=== PATIENT | female | born 1980 | race American Indian/Alaskan Native ===

== ENCOUNTER 2016-12-01 13:44 | Emergency (ER) | payer OTHER ==
[2016-12-01 13:49] VITALS: PULSE 73; RESP 16; TEMP 98; O2SAT 100
[2016-12-01] MEDS ORDERED: Sodium Chloride 0.9% 500 ML IV ONE (14:23)
--- NOTE | 2016-12-01 14:42 | ED PDOC ---
Syncope/Near Syncope/Dizzyness <MinaBernabe Mayra - Last Filed: 12/01/16 16:47> Chief Complaint (Provider): Dizziness/Lightheaded History Per: Patient History/Exam Limitations: no limitations Onset/Duration Of Symptoms: Hrs (2) Current Symptoms Are (Timing): Still Present Activity At Onset Of Symptoms: Sitting Associated Symptoms Preceding Syncopal Episode: No Predromal Symptoms (Sudden Onset) Seizure Or Post-ictal Symptoms: None Fall Associated With With Symptoms: No Additional Complaint(s): 36 year old female with medical history of anemia, HTN, OA presents to ED due to lightheadedness since 12:30 pm. 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 Patient states history of anemia due to fibroids with 2 myomectomies in the past (most recent [address] Jackson). Patient states Hgb prior to that procedure was 8.5. Patient states takes Ferous Sulfate once per day. Patient states did not take BP medication this morning since she usually takes it at night (Amlodipine 5mg). Patient states feelings of off-balanceness. Denies room spinning, nausea, vomiting, gradual onset of symptoms, headache, fever, chills, abdominal pain, nausea, vomiting, diarrhea. No chest pain, palpitations, dyspnea, neck pain, recent illness, visual changees, numbness/tingling, or weakness. PMD: Unknown <Sekou Hurtado - Last Filed: 12/01/16 19:06> Time Seen by Provider: 12/01/16 14:02 Chief Complaint (Nursing): Dizziness/Lightheaded Supervising Attending Note - Supervising Attending Note The Documented history was done by the: [employer], Attending Physician The documented physical exam was done by the: [employer], Attending Physician The documented procedures were done by the: [employer], Attending Physician - Attestation: I have personally seen and examined this patient.: Yes I have fully participated in the care of the patient.: Yes I have reviewed all pertinent clinical information: Yes <MinaRylanbalbir Nunez - Last Filed: 12/01/16 16:47> Past Medical History Vital Signs: Last Vital Signs Temp 98.0 F 12/01/16 13:46 Pulse 73 12/01/16 13:46 Resp 16 12/01/16 13:46 BP 151/90 H 12/01/16 15:01 Pulse Ox 100 12/01/16 16:27 <MackBernabe acevedo Mayra - Last Filed: 12/01/16 16:47> Reviewed: Historical Data, Nursing Documentation, Vital Signs Vital Signs: Last Vital Signs Temp 98.0 F 12/01/16 13:46 Pulse 73 12/01/16 13:46 Resp 16 12/01/16 13:46 BP 163/102 H 12/01/16 13:46 Pulse Ox 100 12/01/16 13:46 - Medical History PMH: HTN - Surgical History Surgical History: (x2) Other surgeries: myomectomy x 2 - Family History Family History: States: Diabetes, Hypertension <Sekou Hurtado - Last Filed: 12/01/16 19:06> - Home Medications Home Medications: Ambulatory Orders Medication Instructions Recorded Meclizine [Meclizine*] 25 mg PO Q6 PRN #20 tab 12/01/16 - Allergies Allergies/Adverse Reactions: Allergies Allergy/AdvReac Type Severity Reaction Status Date / Time No Known Allergies Allergy Verified 12/01/16 13:46 Review of Systems ROS Statement: Except As Marked, All Systems Reviewed And Found Negative Neurological: Positive for: Dizziness <Sekou Hurtado - Last Filed: 12/01/16 19:06> Physical Exam - Reviewed Nursing Documentation Reviewed: Yes Vital Signs Reviewed: Yes - Physical Exam Appears: Positive for: Well, Non-toxic Head Exam: Positive for: ATRAUMATIC, NORMAL INSPECTION, NORMOCEPHALIC Skin: Positive for: Normal Color, Warm, Dry Eye Exam: Positive for: Normal appearance, EOMI, PERRL ENT: Positive for: Normal ENT Inspection Neck: Positive for: Normal, Painless ROM, Supple Cardiovascular/Chest: Positive for: Regular Rate, Rhythm. Negative for: Murmur , Bradycardia, Tachycardia Respiratory: Positive for: Normal Breath Sounds Gastrointestinal/Abdominal: Positive for: Normal Exam, Bowel Sounds (present), Soft. Negative for: Tenderness Back: Positive for: Normal Inspection. Negative for: L CVA Tenderness, R CVA Tenderness Extremity: Positive for: Other (limited rom of bilateral lower extremities due to OA pain). 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 Negative for: Motor/ Sensory Deficits, Facial Droop <Sekou Hurtado - Last Filed: 12/01/16 19:06> - Laboratory Results Result Diagrams: 12/01/16 14:59 12/01/16 14:59 <Bernabe Enriquez - Last Filed: 12/01/16 16:47> - Laboratory Results Result Diagrams: 12/01/16 14:59 12/01/16 14:59 - ECG O2 Sat by Pulse Oximetry: 100 Pulse Ox Interpretation: Normal - Progress ED Course And Treament: Time: 1420 Initial Impression: 36 yo F with PMHx of Anemia, HTN, OA with lightheadness/ dizziness x 2 hrs with sudden onset. DDx includes but not limited to BPPV, anemia, dysequillibrium Plan: * CBC * BMP * URINE DIP STICK * URINE PREG * ORTHOSTATIC VITALS * MECLIZINE 25MG X 1 * NS 500ML X 1 * REEVAL Time: 1610 Patient's symptoms improve though still present. Labs reviewed, mild leukocytosis and anemia present (8.1, baseline for patient). Afebrile. Patient able to ambulate without difficulty. Dizziness provoked by head movement. No n/ v. Will give additional Meclizine 25mg at this time. Patient to be discharged home with close follow up with PCP and ENT specialist. Meclizine Rx given. ED precautions given. <Sekou Hurtado - Last Filed: 12/01/16 19:06> Disposition <MinaRylanbalbir Nunez - Last Filed: 12/01/16 16:47> - Patient ED Disposition Is Patient to be Admitted: No Counseled Patient/Family Regarding: Studies Performed, Diagnosis, Need For Followup, Rx Given - Disposition Disposition: Routine/Home Disposition Time: 16:27 <Sekou Hurtado - Last Filed: 12/01/16 19:06> - Clinical Impression Clinical Impression: Vertigo, Anemia - Disposition Referrals: Jesus Mtz MD [Staff Provider] - Condition: GOOD Additional Instructions: Take medications as prescribed. Follow up with PCP in 2-3 days. Follow up with ENT as soon as possible for further evaluation/management. Return to ED for worsening symptoms. Prescriptions: Meclizine [Meclizine*] 25 mg PO Q6 PRN #20 tab PRN Reason: Dizziness Instructions: Vertigo (ED), Anemia (ED)
[2016-12-01 15:10] VITALS: BP 151/90
[2016-12-01 15:23] LABS: BLOOD UREA NITROGEN 16 mg/dl (7-17); CALCIUM 9.5 mg/dL (8.4-10.2); CARBON DIOXIDE 21 mmol/L (22-30); CHLORIDE 105 mmol/L (98-107); GFR AFRICAN-AMERICAN > 60; GLUCOSE,RANDOM 82 mg/dL (65-105); POTASSIUM 4.3 MMOL/L (3.6-5.0); SODIUM 138 mmol/l (132-148)
[2016-12-01 15:26] LABS: BASO # 0.2 K/uL (0.0-0.2); BASO % 1.3 % (0.0-2.0); EOS # 0.2 K/uL (0.0-0.7); EOS % 2.1 % (0.0-4.0); HEMATOCRIT 21.2 % (34.0-47.0); LYMPH # 4.4 K/uL (1.0-4.3); LYMPH % 37.4 % (20.0-40.0); MEAN CELL VOLUME 55.3 fl (81.0-99.0); MEAN CORPUSCULAR HEMOGLOBIN 21.2 pg (27.0-31.0); MEAN CORPUSCULAR HGB CONC 38.4 g/dL (33.0-37.0); MEAN PLATELET VOLUME 9.7 fl (7.2-11.7); MONO # 0.9 K/uL (0.0-0.8); MONO % 7.3 % (0.0-10.0); NEUT # 6.2 K/uL (1.8-7.0); NEUT % 51.9 % (50.0-75.0); NRBC % 0.1 % (0.0-0.0); RED CELL DISTRIBUTION WIDTH 22.7 % (11.5-14.5); WHITE BLOOD COUNT 11.9 K/uL (4.8-10.8)
== END 2016-12-01 18:08 | disposition home or self-care (01) ==
LOC: H.ER 13:44
DX: R42 Dizziness and giddiness (principal); D64.9 Anemia, unspecified; I10 Essential (primary) hypertension